=== PATIENT | female | born 1955 | race Caucasian/White ===

== ENCOUNTER 2017-06-08 06:49 | Day surgery (SDC) | payer MEDICARE, BC ==
[~2017-06-08] VITALS: Ht 167.6 cm; Wt 112.0 kg
[~2017-06-08 06:49] MED LIST: ALLEGRA180 MG PO; AMLODIPINE BESYL5 MG PO; AMOX TR-K CLV1 EAC1 PO; CYANOCOBAL1000 MCG/M IM; GUAIFENESIN-CO118 ML PO; LEVOTHYROXINE150 MCG PO; LEXAPRO20 MG PO; LISINOPRIL20 MG PO; LOVENOX150 MG SUB-Q; METOPROLOL SUCC50 MG PO; OMEPRAZOLE20 MG PO; WARFARIN SODIUM5 MG PO
[2017-06-08] MEDS ORDERED: REVLIMID2.5 MG PO (07:07)
--- NOTE | 2017-06-08 08:29 | NUR ---
PT RESTING IN BED-ALERT AND ORIENTED. SHE HAS HAD NUMEROUS SCOPES BEFORE, SHE SEEMED TO HANDLE PREP DAY APPROPRIATELY. PT REQUESTED PRAYER, AND I COULD TELL BECAUSE OF HER HEALTH HISTORY, A LITTLE ANXIOUS MOMENT. WILL FOLLOW NEEDED
--- NOTE | 2017-06-08 08:44 | NUR ---
06/08/17 0844 Aydee Mckenna 0836 PT ARRIVED IN PACU SLEEPY. ABD SOFT.
--- NOTE | 2017-06-08 10:49 | OR ---
[facility] [address] [place], [place] [address] Signed DATE OF OPERATION: 06/08/2017 SURGEON: Enrique Keyes MD PREOPERATIVE DIAGNOSES: 1. Left lower quadrant abdominal pain. 2. Left rectus sheath hematoma and left pelvic hematoma. 3. Paternal grandmother and brother with colon cancer. POSTOPERATIVE DIAGNOSES: 1. A 4 mm rectal polyp at 15 cm. 2. Minimal internal hemorrhoids. 3. Short colon. PROCEDURE: Colonoscopy with hot biopsy. ESTIMATED BLOOD LOSS: None. INDICATIONS: Saba is a 61-year-old female asked to see me for followup colonoscopy. 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 She was having left lower quadrant abdominal pain and left pelvic pain. She had been to the emergency room and her primary care provider. A CT scan had been performed. She appears to have a classic rectus sheath hematoma extending down in the left pelvis. She was asked to see me with respect to the above. We reviewed that in detail. We also know that her paternal grandmother and brother both have colon cancer. We had ordered an ultrasound of her abdominal wall and pelvis and it confirms the hematomas. In the meantime, she was scheduled for a followup colonoscopy. In the office, I gave her a pamphlet on colonoscopy and we looked at that together along with the risks including but not limited to gas bloating, crampy abdominal pain, bleeding, perforation requiring surgery, and missed diagnosis. We also discussed the need for IV conscious sedation. She had expressed understanding and wished to proceed. PROCEDURE NOTE: Saba was taken into our endoscopy suite and placed in the left lateral decubitus position. She was given 7 mg of Versed and 100 mcg of fentanyl to cover the case. A digital rectal exam was performed and this was unremarkable. The adult colonoscope was introduced and advanced readily up into her cecum. She appears to have a fairly short Electronically Signed By: ENRIQUE KEYES MD 06/08/17 1049 PATIENT NAME: SABA COWART OPERATIVE REPORT DATE OF : 57 PHYSICIAN: ENRIQUE KEYES MD REPORT #: [id number] REPORT IS CONFIDENTIAL AND NOT TO BE RELEASED WITHOUT AUTHORIZATION [facility] [address] [place], [place] [address] Signed colon. Her prep was quite good. The scope was then slowly withdrawn. No pathology throughout the entire colon. She had just a tiny polyp at 15 cm at the top of the rectum. It was easily removed with a hot biopsy forceps. Upon retroflexion of the scope, she has some very minimal internal hemorrhoid tissue and tiny skin tags. After this, the gas was suctioned out and the colonoscope removed. Saba tolerated the procedure quite well. RECOMMENDATIONS: We will have Saba back in the office in 7 to 14 days to review her results. She can resume her Coumadin in 5 days. MD VINCENZO Jessica/MITCHELLL /[id number] cc: DO Enrique Peng MD Chloe K Norris, PA-C Electronically Signed By: ENRIQUE KEYES MD 06/08/17 1049 PATIENT NAME: SABA COWART STEPHANIE OPERATIVE REPORT DATE OF : 57 PHYSICIAN: ENRIQUE KEYES MD REPORT #: [id number] REPORT IS CONFIDENTIAL AND NOT TO BE RELEASED WITHOUT AUTHORIZATION
== END 2017-06-08 09:00 | disposition home or self-care (01) ==
LOC: DS 06:49 → OPS 06:49 → DS 08:15 → OPS 09:00
PROVIDERS: Colon & Rectal Surgery
PROC: 0DBE8ZX Excision of Large Intestine, Via Natural or Artificial Opening Endoscopic, Diagnostic (ICD-10-PCS; principal; 2017-06-08 08:15)
DX: K64.8 Other hemorrhoids (principal); I10 Essential (primary) hypertension; K21.9 Gastro-esophageal reflux disease without esophagitis; E66.9 Obesity, unspecified; E03.9 Hypothyroidism, unspecified; F32.9 Major depressive disorder, single episode, unspecified; Z90.89 Acquired absence of other organs; Z86.711 Personal history of pulmonary embolism; Z80.0 Family history of malignant neoplasm of digestive organs; Z90.49 Acquired absence of other specified parts of digestive tract; Z90.710 Acquired absence of both cervix and uterus; Z96.641 Presence of right artificial hip joint; Z98.890 Other specified postprocedural states; Z88.2 Allergy status to sulfonamides; Z88.8 Allergy status to other drugs, medicaments and biological substances; Z79.899 Other long term (current) drug therapy; Z68.41 Body mass index [BMI] 40.0-44.9, adult
CPT/HCPCS: 99153; G0500; J2250; J3010; J7120